=== PATIENT | male | born 1990 | race Two or more races ===

== ENCOUNTER 2017-07-12 01:09 | Emergency (ER) | payer OTHER ==
[2017-07-12] MEDS: IBUPROFEN 600 MG TAB PO (01:51)
== END 2017-07-12 02:57 | disposition home or self-care (01) ==
LOC: FTE 01:09
DX: S93.402A Sprain of unspecified ligament of left ankle, initial encounter (principal); X58.XXXA Exposure to other specified factors, initial encounter; Y92.9 Unspecified place or not applicable
CPT/HCPCS: 73610; 99283-25